=== PATIENT | female | born 1990 | race Caucasian/White ===

== ENCOUNTER → 2021-08-28 14:49 | Outpatient (CLI) | payer OTHER, SELFPAY ==
--- NOTE | ~2021-08-28 | XR_ITS ---
XR shoulder RT min 2V 08/28/2021 15:10 Indication: Right shoulder pain Procedure: 4 views right shoulder Comparison: No prior studies for comparison. Findings: No fracture, subluxation or dislocation. No significant joint effusion. No foreign bodies. Impression: 1: No significant bone or joint abnormality. Reviewed, dictated and finalized at location A. ECTIONAL SUPERVISOR Impression: 1: No significant bone or joint abnormality.
== END ==
PROVIDERS: PCP Family Medicine; Visit Provider Physician Assistant
DX: M25.511 Pain in right shoulder (principal)
CPT/HCPCS: 73030

== ENCOUNTER → 2022-08-13 15:28 | Outpatient (CLI) | payer OTHER, SELFPAY ==
--- NOTE | ~2022-08-13 | XR_ITS ---
XR chest 2V DATE: 08/13/2022 15:44 INDICATION: Cough TECHNIQUE: PA and lateral views COMPARISON: None FINDINGS: Normal heart size. No hilar or mediastinal enlargement. No pulmonary infiltrate or consolid ation, pleural effusion or pulmonary vascular congestion or pneumothorax. Included skeletal structures are unremarkable. IMPRESSION: Negative Reviewed, dictated and finalized at location B. LER CRANE OPERATOR IMPRESSION: Negative
== END ==
PROVIDERS: PCP Clinical Nurse Specialist; Visit Provider Clinical Nurse Specialist
DX: R05.9 Cough, unspecified (principal)
CPT/HCPCS: 71046

== ENCOUNTER 2022-10-28 14:11 | Emergency (ER) | payer OTHER, SELFPAY ==
[2022-10-28] VITALS (25 sets, daily range): BP systolic 102–162; BP diastolic 61–145; PULSE 65–130; RESP 14–23; TEMP 36.4; O2SAT 100
--- NOTE | ~2022-10-28 | XR_ITS ---
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 RESULT: Lines, tubes, and devices: None. Lungs and pleura: Clear. Cardiomediastinal silhouette: Stable. Other: No acute osseous or upper abdominal finding. IMPRESSION: No acute cardiopulmonary process. Reviewed, dictated and finalized at location K. ERCIAL GREEN BUILDING DESIGNER
--- NOTE | 2022-10-28 14:16 | ECG_ITS ---
Measurements Intervals [place] Rate: 103 P: 253 KS: 140 QRS: 44 QRSD: 89 T: 51 QT: 346 QTc: 455 Interpretive Statements ATRIAL FIBRILLATION WITH RAPID VENTRICULAR RESPONSE ABNORMAL RHYTHM ECG NO PREVIOUS ECG AVAILABLE FOR COMPARISON Electronically Signed On 10-28-2022 18:42:13 GARMENT SEWING MACHINE OPERATOR by Inge Humphries M.D.
--- NOTE | 2022-10-28 14:28 | PC.NURSE ---
pt states took second dose of metoprolol 12.5mg around 1200 today
--- NOTE | 2022-10-28 14:33 | ED.ARRPALP ---
HPI - Arrhythmia/Palpitations General Chief Complaint: Arrhythmia/Palpitations Stated Complaint: AFIB ?? Time Seen by Provider: 10/28/22 14:16 History of Present Illness HPI narrative: This is a 32-year-old female with past medical history of A-fib status post electrical cardioversion 7 months ago, who presents to the emergency department complaining of arrhythmia beginning approximately 3 hours prior to arrival. The patient states she was at rest when she felt palpitations associated with some lightheadedness. She denies any change in obtaining her medications, recent trauma or recent illness. She states she took her morning dose of metoprolol (12.5 mg) as usual. Approximately 1 hour ago, she took an additional dose of her metoprolol. She has no other complaints today. The patient states she has a cardiology appointment scheduled for early November. Related Data Home Medications Medication Instructions Recorded Confirmed apixaban 5 mg tablet (Eliquis) 5 mg PO BID 09/27/22 09/27/22 metoprolol succinate 25 mg 12.5 mg PO DAILY 09/27/22 09/27/22 tablet,extended release 24 hr Allergies Allergy/AdvReac Type Severity Reaction Status Date / Time vilazodone [Viibryd] Allergy Unknown confrontati Verified 10/28/22 14:24 onal Review of Systems Review of Systems: CONSTITUTIONAL: Denies fever, chills, or sweats. ENT: Denies rhinorrhea, congestion, sore throat, or otalgia. CARDIOVASCULAR: Palpitations denies chest pain, or edema. RESPIRATORY: Denies cough or dyspnea. GASTROINTESTINAL: Denies abdominal pain, nausea, vomiting, or diarrhea. GENITOURINARY: Denies dysuria or hematuria. SKIN: Denies rash or itching. MUSCULOSKELETAL: Denies back pain, joint pain, or myalgia. NEUROLOGIC: Denies headache, numbness, dizziness, or weakness. PSYCHIATRIC: Denies anxiety or depression. 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 states she smokes but, not even one cigarette a week. Alcohol intake: current Lack of Transportation: No Lack of Food: Never True Current Housing: I Have Housing Concerned About Future Housing: No Difficulty Paying Gas/Electric Bills: No Difficulty Paying for Meds: No Currently Unemployed: No Education: Bachelor's Degree Difficulty w/ Childcare or Family Care: No Exam Narrative: GENERAL: Well-developed, well-nourished, and in no acute distress. HEAD: Normocephalic, atraumatic. EYES: PERRLA and EOMI. ENT: Nares clear, no rhinorrhea or epistaxis. Mucous membranes moist. Oropharynx without tonsillar hypertrophy exudate or other lesions. NECK: No carotid bruits or JVD CHEST: Clear to auscultation. No respiratory distress. No wheezes rales or rhonchi HEART: Irregularly irregular. No murmur heard. Normal peripheral pulses. ABDOMEN: Soft, nontender, nondistended, normal active bowel sounds. EXTREMITIES: Normal range of motion. No edema. SKIN: Warm, dry, no rash. NEURO: No focal deficits. Alert and oriented x3. PSYCH: Normal mood and affect. Course Course Emergency Course: 15:45 - Heart rate improved to the 80s to 90s after 5 mg dose of IV metoprolol, 2 g of magnesium and a liter of fluids. Chest x-ray unremarkable. Initial EKG consistent with A-fib with RVR. Consulted cardiology. 15:58 - Discusse
[2022-10-28 14:43] LABS: Basophils Absolute Auto 0.1 K/mm3 (0.0-0.1); Basophils Percent Auto 0.6 % (0.2-1.2); Eosinophils Absolute Auto 0.1 K/mm3 (0-0.3); Eosinophils Percent Auto 0.7 % (0-4.4); Hematocrit 42.4 % (37.0-47.0); Hemoglobin 14.4 g/dL (12.0-15.0); Immature Granulocyte Absolute 0.03 K/mm3 (0.00-0.031); Immature Granulocyte Percent A 0.3 % (0-0.5); Lymphocytes Absolute Auto 2.87 K/mm3 (0.9-3.2); Lymphocytes Percent Auto 27.4 % (18.3-44.2); Mean Corpuscular Hemoglobin 32.4 pg (26-34); Mean Corpuscular Volume 95.5 fl (80-100); Mean Platelet Volume 8.8 fl (7.4-10.4); Monocytes Absolute Auto 0.5 K/mm3 (0.1-0.6); Monocytes Percent Auto 4.8 % (2.6-8.5); Neutrophils Absolute Auto 6.9 K/mm3 (1.3-6.7); Neutrophils Percent Auto 66.2 % (45.5-73.1); Platelet Count Result 313 k/mm3 (150-375); Red Blood Count 4.44 M/mm3 (4.2-5.4); Red Cell Distribution Width 12.2 % (11.5-14.5); White Blood Count 10.5 K/mm3 (4.5-10.0)
[2022-10-28] MEDS: METOPROLOL TARTRATE INJ 5 MG/5 ML VIAL IV PUSH (14:52)
[2022-10-28] MEDS: SODIUM CHLORIDE 0.9% IV 1,000 ML 999 ML IV CONT (14:53)
[2022-10-28] MEDS: MAGNESIUM SULF 2 GM/WATER 50ML 2 GM/50 ML BAG IVPB (14:53)
[2022-10-28 15:00] LABS: Alanine Aminotransferase 16 U/L (6-35); Albumin Level 4.4 g/dL (3.5-5.1); Alkaline Phosphatase 74 U/L (38-126); Anion Gap 6 mmol/L (8-16); Aspartate Amino Transferase 19 U/L (14-36); Bilirubin,Total 0.5 mg/dL (0.2-1.3); Blood Urea Nitrogen 9 mg/dL (7-17); Calcium 8.5 mg/dL (8.4-10.2); Carbon Dioxide 26 mmol/L (22-30); Chloride 102 mmol/L (98-107); Estimated CRCL calculation 107 ml/min; Estimated Glomerular Filt Rate > 60; Glucose 96 mg/dL (65-110); Magnesium 1.7 mg/dL (1.6-2.3); Potassium 3.8 mmol/L (3.4-5.0); Sodium 134 mmol/L (137-145)
[2022-10-28 15:30] LABS: Thyroid Stimulating Hormone Reflex 0.976 uIU/mL (0.465-4.68)
== END 2022-10-28 16:43 | disposition home or self-care (01) ==
PROVIDERS: Emergency Provider Preventive Medicine Aerospace Medicine; PCP Family Medicine
DX: I48.91 Unspecified atrial fibrillation (principal); F17.210 Nicotine dependence, cigarettes, uncomplicated; Z79.01 Long term (current) use of anticoagulants
CPT/HCPCS: 36415; 71045; 80053; 83735; 84443; 85025; 93005; 96365; 96375; 99284; J3475; J7030

== ENCOUNTER 2023-11-16 13:42 | Emergency (ER) | payer OTHER, SELFPAY ==
[2023-11-16 13:48] VITALS: BP 153/88; PULSE 119; RESP 16; TEMP 36.9; O2SAT 100
--- NOTE | 2023-11-16 15:00 | ED.GENADULT ---
HPI - General Adult General Chief complaint: Urogenital-Female Stated complaint: Urinary Problem/Low Back Pain/Nausea Source: patient Mode of arrival: ambulatory Limitations: no limitations History of Present Illness HPI narrative: Patient presents for evaluation of urinary symptoms. She indicates yesterday she developed urinary frequency, hesitancy, decreased volume with each void, and some dysuria. She thought she was developing a urinary tract infection so consumed a large volume of cranberry juice. She thought her symptoms were getting better. This morning she woke from sleep with low back pain. She has also experienced chills. Denies fever, vaginal bleeding or discharge. LMP was two weeks ago. She is not on contraception. Of note, she has a history of atrial fibrillation and underwent cardiac ablation. She states she converted to NSR and has not had any recurrence of her a-fib. She saw her ignition expert this past Saturday and was advised that she should wean off her metoprolol. It sounds like she was taking metoprolol tartrate 25mg daily but is now taking every other day, as directed. Her heart rate on arrival and during my exam 110-120's. She states her heart rate is normally quite variable. In fact, she shows me readings on her watch that show rates between 58-150's recently. She denies any stimulant use. She is a current smoker. Related Data Allergies Allergy/AdvReac Type Severity Reaction Status Date / Time vilazodone [Viibryd] Allergy Unknown confrontati Verified 11/16/23 13:54 onal Review of Systems Review of Systems: CONSTITUTIONAL: Reports chills. Denies fever or sweats. EYES: Denies visual changes, redness, or discharge. ENT: Denies rhinorrhea, congestion, sore throat, or otalgia. CARDIOVASCULAR: Denies chest pain, palpitations, or edema. RESPIRATORY: Denies cough or dyspnea. GASTROINTESTINAL: Denies abdominal pain, nausea, vomiting, or diarrhea. GENITOURINARY: Reports recent dysuria, urinary frequency, hesitancy and decreased volume with each void SKIN: Denies rash or itching. MUSCULOSKELETAL: Reports low back pain. Denies joint pain, or myalgia. NEUROLOGIC: Denies headache, numbness, dizziness, or weakness. PSYCHIATRIC: Denies anxiety or depression. 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 states she smokes one cigarette a week. Alcohol intake: current Lack of Transportation: No Lack of Food: Never True Current Housing: I Have Housing Concerned About Future Housing: No Difficulty Paying Gas/Electric Bills: No Difficulty Paying for Meds: No Currently Unemployed: No Education: Bachelor's Degree Difficulty w/ Childcare or Family Care: No Gender identity (if verbalized by the patient): Female Sexual Orientation (if Verbalized by the Patient): Straight or Heterosexual Spiritual care concerns: No Exam Narrative: GENERAL: Well-appearing, well-nourished, and in no acute distress. HEAD: Normocephalic, atraumatic. EYES: PERRLA and EOMI. ENT: Nares clear, no rhinorrhea or epistaxis. Mucous membranes moist. Oropharynx without tonsillar hypertrophy exudate or
== END 2023-11-16 15:02 | disposition short-term general hospital (02) ==
PROVIDERS: Emergency Provider Nurse Practitioner; PCP Family Medicine
DX: N39.0 Urinary tract infection, site not specified (principal); B96.20 Unspecified Escherichia coli [E. coli] as the cause of diseases classified elsewhere; R00.0 Tachycardia, unspecified; Z72.0 Tobacco use; I48.91 Unspecified atrial fibrillation
CPT/HCPCS: 81003; 81025; 87077; 87086; 87088; 87186; 99213; G0463

== ENCOUNTER 2023-11-16 15:31 | Emergency (ER) | payer OTHER, SELFPAY ==
--- NOTE | ~2023-11-16 | CT_ITS ---
EXAMINATION: CT abdomen pelvis w con DATE: 11/16/2023 16:47 INDICATION: concern for pyelo TECHNIQUE: Computed tomography (CT) of the abdomen and pelvis was performed with 100 mL Omnipaque-350 intravenous contrast. Automated exposure control and iterative reconstruction technique were employe d. The dose-length product was 472.36 mGy-cm. COMPARISON: None. FINDINGS: Lower thorax: Unremarkable Liver: Normal. Biliary/Gallbladder: Gallbladder is normal. No bile duct dilation. Pancreas: No mass or duct dilation. Spleen: Normal. Adrenals:No mass. Kidneys: Urothelial hyperemia and periureteral stranding involving the entire left collecting system. Minimal right ureteral urothelial hyperemia. No suspicious mass, obstructing calcification, or hydro nephrosis. GI tract: No small or large bowel dilation. Normal appendix. Mesentery/Peritoneum: No ascites, mass, or free air. Retroperitoneum: No mass. Pelvis: Mild bladder wall hyperemia, without significant inflammatory change. Pelvic organs are other mirza within normal limits. Soft Tissues: Soft tissues and body wall unremarkable. Bones: No acute osseous finding. IMPRESSION: Mild cystitis, moderate left and mild right ureteritis/pyelitis. No CT evidence of pyelonephritis, no ting that pyelonephritis cannot be excluded based on imaging. No other acute abdominopelvic process detected. Reviewed, dictated and finalized at location K. ESSOR OF [employer]IES IMPRESSION: Mild cystitis, moderate left and mild right ureteritis/pyelitis. No CT evidence of pyelonephritis, noting that pyelonephritis cannot be excluded based on imag ing. No other acute abdominopelvic process detected.
[2023-11-16 15:33] VITALS: BP 156/88; PULSE 125; RESP 17; TEMP 36.5; O2SAT 100
[2023-11-16 15:47] LABS: Basophils Percent Auto 0.4 % (0.2-1.2); Eosinophils Percent Auto 0.1 % (0-4.4); Hematocrit 42.6 % (37.0-47.0); Hemoglobin 14.3 g/dL (12.0-15.0); Immature Granulocyte Absolute 0.03 K/mm3 (0.00-0.031); Immature Granulocyte Percent A 0.3 % (0-0.5); Lymphocytes Absolute Auto 1.48 K/mm3 (0.9-3.2); Lymphocytes Percent Auto 13.2 % (18.3-44.2); Mean Corpuscular HGB Conc 33.6 g/dl (32-36); Mean Corpuscular Hemoglobin 32.4 pg (26-34); Mean Corpuscular Volume 96.6 fl (80-100); Mean Platelet Volume 8.8 fl (7.4-10.4); Monocytes Absolute Auto 0.5 K/mm3 (0.1-0.6); Monocytes Percent Auto 4.4 % (2.6-8.5); Neutrophils Absolute Auto 9.2 K/mm3 (1.3-6.7); Neutrophils Percent Auto 81.6 % (45.5-73.1); Platelet Count Result 279 k/mm3 (150-375); Red Blood Count 4.41 M/mm3 (4.2-5.4); Red Cell Distribution Width 12.4 % (11.5-14.5); White Blood Count 11.2 K/mm3 (4.5-10.0)
[2023-11-16 15:58] LABS: Alanine Aminotransferase 23 U/L (6-35); Albumin Level 4.6 g/dL (3.5-5.1); Alkaline Phosphatase 78 U/L (38-126); Anion Gap 11 mmol/L (8-16); Aspartate Amino Transferase 29 U/L (14-36); Bilirubin,Total 0.8 mg/dL (0.2-1.3); Blood Urea Nitrogen 2 mg/dL (7-17); Calcium 9.6 mg/dL (8.4-10.2); Carbon Dioxide 26 mmol/L (22-30); Chloride 95 mmol/L (98-107); Estimated CRCL calculation 120 ml/min; Estimated Glomerular Filt Rate > 60; Glucose 114 mg/dL (65-110); Potassium 3.2 mmol/L (3.4-5.0); Sodium 132 mmol/L (137-145)
--- NOTE | 2023-11-16 16:10 | ECG_ITS ---
Measurements Intervals [place] Rate: 100 P: 39 NV: 152 QRS: 15 QRSD: 87 T: 13 QT: 377 QTc: 486 Interpretive Statements SINUS TACHYCARDIA BASELINE ARTIFACT- II, III BORDERLINE ECG COMPARED TO ECG 10/28/2022 14:20:11 SINUS TACHYCARDIA NOW PRESENT Electronically Signed On 11-16-2023 17:09:34 UTILIZATION SPECIALIST by Joni Morris D.O.
--- NOTE | 2023-11-16 16:11 | ED.FEMALEGU ---
HPI - Female Genitourinary General Chief complaint: Urogenital-Female Stated complaint: UTI/tachy/back pain- r/o sepsis Time Seen by Provider: 11/16/23 15:42 History of Present Illness HPI Narrative: 33-year-old female with a history of paroxysmal atrial fibrillation who is s/p cardiac ablation reports for evaluation for urinary complaints. Patient states yesterday she had dysuria and urinary frequency. States she took cranberry juice and it resolved. States this morning she had an episode of nausea and vomiting which prompted her to urgent care. She went to urgent care today for having low back pain and tachycardia. She was sent to the emergency department for further evaluation for an infection. Related Data Allergies Allergy/AdvReac Type Severity Reaction Status Date / Time vilazodone [Viibryd] Allergy Unknown confrontati Verified 11/16/23 13:54 onal Review of Systems Review of Systems: CONSTITUTIONAL: Denies fever, chills, or sweats. EYES: Denies visual changes, redness, or discharge. ENT: Denies rhinorrhea, congestion, sore throat, or otalgia. CARDIOVASCULAR: Denies chest pain, palpitations, or edema. RESPIRATORY: Denies cough or dyspnea. GASTROINTESTINAL: See HPI GENITOURINARY: See HPI SKIN: Denies rash or itching. MUSCULOSKELETAL: Denies back pain, joint pain, or myalgia. NEUROLOGIC: Denies headache, numbness, or weakness. PSYCHIATRIC: Denies anxiety or depression. 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 states she smokes one cigarette a week. Alcohol intake: current Lack of Transportation: No Lack of Food: Never True Current Housing: I Have Housing Concerned About Future Housing: No Difficulty Paying Gas/Electric Bills: No Difficulty Paying for Meds: No Currently Unemployed: No Education: Bachelor's Degree Difficulty w/ Childcare or Family Care: No Gender identity (if verbalized by the patient): Female Sexual Orientation (if Verbalized by the Patient): Straight or Heterosexual Spiritual care concerns: No Exam Narrative: GENERAL: Well-appearing, well-nourished, and in no acute distress. HEAD: Normocephalic, atraumatic. EYES: PERRLA and EOMI. ENT: Nares clear, no rhinorrhea or epistaxis. Mucous membranes moist. NECK: Supple. CHEST: Clear to auscultation. No respiratory distress. HEART: Regular rate and rhythm. No murmur heard. Normal peripheral pulses. ABDOMEN: Soft, nontender, nondistended, normal active bowel sounds. No rebound, guarding or rigidity. No CVA tenderness. EXTREMITIES: Normal range of motion. No edema. SKIN: Warm, dry, no rash. NEURO: No focal deficits. Alert and oriented x3 Course Vital Signs Vital signs: Vital Signs Temperature 97.7 F 11/16/23 15:33 Pulse Rate 125 H 11/16/23 15:33 Respiratory Rate 17 11/16/23 15:33 Blood Pressure 156/88 H 11/16/23 15:33 Pulse Oximetry 100 11/16/23 15:33 Oxygen Delivery Room Air 11/16/23 15:33 Temperature 97.7 F 11/16/23 15:33 Pulse Rate 125 H 11/16/23 15:33 Respiratory Rate 17 11/16/23 15:33 Blood Pressure 156/88 H 11/16/23 15:33 Pulse Oximetry 100 11/16/23 15:
[2023-11-16] MEDS: ONDANSETRON INJ 4 MG/2 ML VIAL IV PUSH (16:17)
[2023-11-16] MEDS: SODIUM CHLORIDE 0.9% IV 1,000 ML 999 ML IV CONT ×2 (16:17→18:04)
[2023-11-16 16:44] LABS: Lipase 65 U/L (23-300)
[2023-11-16 17:07] LABS: Influenza A QL RT-PCR Negative (Negative); Influenza B QL RT-PCR Negative (Negative); RSV RNA, RT-PCR Negative (Negative); SARS-CoV-2 RNA PCR Negative (Negative)
[2023-11-16 17:10] LABS: Appearance Urine Clear (Clear); Bacteria Urine None Seen /hpf; Bilirubin Urine Negative (Negative); Blood Urine 1+ (Negative); Color Urine Yellow (Yellow); Glucose Urine UA Negative (Negative); Ketones Urine Negative (Negative); Leukocyte Esterase Ur 3+ LEU/UL (Negative); Need Manual Microscopic Reviewed; Nitrate Urine Negative (Negative); Non Pathogenic Casts 0-2; Protein Urine Trace mg/dL (Negative); RBC Urine 0-2 /hpf (0-2); Specific Grav Ur 1.001 (1.001-1.035); Squamous Epithelial Cell Urine None seen /hpf (Few); WBC Urine 21-50 /hpf; pH Urine 6.5 (5.0-9.0)
[2023-11-16 17:11] LABS: Add Urine Microscopic? YES
[2023-11-16 17:53] LABS: Magnesium 1.7 mg/dL (1.6-2.3)
[2023-11-16] MEDS: POTASSIUM CHLORIDE 20 MEQ PACKET (FOR LIQUID) PO (18:02)
[2023-11-16 18:30] VITALS: BP 100/59; PULSE 98; RESP 16; TEMP 36.8; O2SAT 96
[2023-11-16 19:14] VITALS: BP 99/61; PULSE 100; RESP 18; O2SAT 100
== END 2023-11-16 19:14 | disposition home or self-care (01) ==
PROVIDERS: Emergency Medicine; Emergency Provider Physician Assistant; PCP Family Medicine
DX: N12 Tubulo-interstitial nephritis, not specified as acute or chronic (principal); Z20.822 Contact with and (suspected) exposure to COVID-19; I48.0 Paroxysmal atrial fibrillation; F17.210 Nicotine dependence, cigarettes, uncomplicated; R00.0 Tachycardia, unspecified
CPT/HCPCS: 36415; 74177; 80053; 81001; 81003; 81025; 83605; 83690; 83735; 85025; 87077; 87086; 87088; 87186; 87637; 93005; 96361; 96365; 96375; 99284; A9270; J0696; J2405; J7030; Q9967

== ENCOUNTER 2024-08-28 09:13 | Emergency (ER) | payer OTHER, SELFPAY ==
[2024-08-28 09:25] VITALS: BP 134/81; PULSE 92; RESP 18; TEMP 36.6; O2SAT 100
--- NOTE | 2024-08-28 09:25 | ECG_ITS ---
Test Date: 2024-08-28 09:31:58 Measurements Intervals [place] Rate: 79 P: 37 IN: 148 QRS: 34 QRSD: 88 T: 29 QT: 388 QTc: 446 Interpretive Statements SINUS RHYTHM No previous ECG available for comparison Electronically Signed On 08-28-2024 18:40:52 CORRUGATED BOX MACHINE OPERATOR by Frances Cruz M.D.
--- NOTE | 2024-08-28 09:31 | ED.CHESTPAIN ---
HPI - Chest Pain General Chief Complaint: Chest Pain Stated Complaint: Heart burn heavy felling on chest Source: patient Mode of arrival: ambulatory Limitations: no limitations History of Present Illness HPI narrative: 34-year-old female with a history of atrial fibrillation post ablation presented for complaint of heavy and tight sensation in the chest. Onset 0400. Tight sensation is described as a labor contraction and occurs every few minutes. One episode of vomiting, and has been belching frequently. States she took 6 Tums without relief. Denies pain radiating into the neck, jaw, back or down the arms. Denies associated nausea, vomiting, dizziness or sweating. Endorses increased stress for infertility issues, currently taking Doxy for infection in fallopian tube. Related Data Home Medications ?Medication ?Instructions ?Recorded ?Confirmed ?Last Taken ?Type doxycycline hyclate 100 mg tablet mg 08/28/24 Unknown History Allergies Allergy/AdvReac Type Severity Reaction Status Date / Time vilazodone (Viibryd) Allergy Unknown confrontati Verified 11/16/23 13:54 onal Review of Systems Review of Systems: CONSTITUTIONAL: Denies body aches, fever, chills, or sweats. EYES: Denies visual changes, redness, or discharge. ENT: Denies rhinorrhea, congestion, sore throat, or otalgia. CARDIOVASCULAR: Denies chest pain, palpitations, or edema. RESPIRATORY: Denies cough or dyspnea. GASTROINTESTINAL: Denies abdominal pain, constipation or diarrhea. reports nausea, vomiting SKIN: Denies rash MUSCULOSKELETAL: Denies back pain, joint pain, or myalgia. NEUROLOGIC: Denies headache, numbness, tingling, or weakness. PSYCH: Denies depression or anxiety. 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 states she smokes one cigarette a week. Alcohol intake: current Lack of Transportation: No Lack of Food: Never True Current Housing: I Have Housing Concerned About Future Housing: No Difficulty Paying Gas/Electric Bills: No Difficulty Paying for Meds: No Currently Unemployed: No Education: Bachelor's Degree Difficulty w/ Childcare or Family Care: No Gender identity (if verbalized by the patient): Female Sexual Orientation (if Verbalized by the Patient): Straight or Heterosexual Spiritual care concerns: No Comments At time of signature, I have reviewed and agree with nursing past medical, surgical, social and family history unless otherwise noted. Please see nursing chart for further information. There is no relevant family history pertinent to the presenting complaint Exam Narrative: GENERAL: Well-appearing EYES: EOMI. No redness or drainage. Conjunctivae normal. ENT: Mucous membranes pink and moist. No rhinorrhea. TMs normal bilaterally. Throat normal. Uvula midline. NECK: Normal AROM. Supple. No lymphadenopathy. CHEST: No respiratory distress. Clear to auscultation. Nontender chest with palpation. HEART: Regular rate and rhythm. No murmur appreciated. Normal peripheral pulses. ABDOMEN: Soft, nondistended, normal active bowel sounds. Tender to epigastric area with palpation. SKIN: Warm, dry, no rash. Capillary refill normal. Normal skin turgor. NEURO: Alert and oriented x3. Course Course Emergency Course: Patient is aware of diagnosis, understands and agrees to treatment plan. Anticipatory guidance given. Patient agrees to follow-up as directed and is aware of reasons to seek care at the emergency department. Portions of this record may have been created with voice recognition software Level of Care: Express Care Visit Vital Signs Vital signs: Vital Signs Temperature 97.8 F 08/28/24 09:25 Pulse Rate 92 08/28/24 09:25 Respiratory Rate 18 08/28/24 09:25 Blood Pressure 134/81 08/28/24 09:25 Pulse Oximetry 100 08/28/24 09:25 Oxygen Delivery Room Air 08/28/24 09:25 Temperature 97.8 F 08/28/24 09:25 Pulse Rate 92 08/28/24 09:25 Respiratory Rate 18 08/28/24 09:25 Blood Pressure 134/81 08/28/24 09:25 Pulse Oximetry 100 08/28/24 09:25 Oxygen Delivery Room Air 08/28/24 09:25 Transfer Transfered to: [place] Transportation: Other (Private vehicle) Transfer rationale: Pt is agreeable to transfer. Requests transfer to [facility] via private vehicle. Risks of transportation reviewed with pt including injury, worsening of condition and . v/u. Report called to hospital, spoke with Chidi Blankenship PA-C, accepting physician. Pt is in stable condition at time of transfer. Advised to remain NPO and go directly to the hospital. MDM - Chest Pain MDM Narrative Medical decision making narrative: Discussed physical exam findings. EKG NSR. Minimal improvement in symptoms after taking multiple Tums this morning and Maalox today. Will transfer for labs. Differential Diagnosis Differential diagnosis: Likely other (STEMI, AAA, PE, pneumothorax, cardiac tamponade, esophageal rupture, pneumonia, GERD, musculoskeletal pain, endocarditis, pericarditis, URI, bronchitis, anxiety) ECG Data EKG #1: Attestation: I personally reviewed and interpreted this ECG as follows: (NSR rate 79 IN 148 QRS 88 QT/QTC 388/423) ECG completion date: 08/28/24 ECG completion time: 09: Prior ECG tracings: available for review EKG Interpretation: normal rate and sinus rhythm Discharge Plan Discharge Clinical Impression: Chest pain Qualifiers: Chest pain type: unspecified Qualified Code(s): R07.9 - Chest pain, unspecified Patient Disposition: Acute Care Hospital Condition: Stable Patient Language: Arabic Prescriptions: No Action doxycycline hyclate 100 mg tablet Follow-up/Referrals: Evelin Cartwright MD [Primary Care Provider] - Time of Disposition: 10:25
[2024-08-28] MEDS: MAG HYDROX/AL HYDROX/SIMETH 30 ML UDC PO (09:54)
== END 2024-08-28 10:25 | disposition short-term general hospital (02) ==
PROVIDERS: Emergency Provider Nurse Practitioner Family; PCP Family Medicine
DX: R07.9 Chest pain, unspecified (principal); Z72.0 Tobacco use
CPT/HCPCS: 93005; 99213; A9270; G0463

== ENCOUNTER 2024-09-18 12:19 | Outpatient (CLI) | payer OTHER, SELFPAY | END 2024-09-18 12:20 | disposition home or self-care (01) | LOC: ANHSURGERY 12:24 | PROVIDERS: PCP Family Medicine; Visit Provider Obstetrics & Gynecology | DX: N70.11 Chronic salpingitis (principal) | CPT/HCPCS: 36415; 86850; 86900; 86901 ==

== ENCOUNTER 2024-10-02 12:29 | Outpatient (CLI) | payer OTHER, SELFPAY | END 2024-10-02 12:30 | disposition home or self-care (01) | LOC: ANHSURGERY 12:33 | PROVIDERS: PCP Family Medicine; Visit Provider Obstetrics & Gynecology | DX: Z01.812 Encounter for preprocedural laboratory examination (principal); M70.11 Bursitis, right hand | CPT/HCPCS: 36415; 86850; 86900; 86901 ==

== ENCOUNTER 2024-10-07 00:42 | Day surgery (SDC) | payer OTHER, SELFPAY ==
[2024-09-17 12:42] VITALS: BMI 27.5
--- NOTE | 2024-09-17 12:50 | PC.NURSE ---
Report to the Outpatient Waiting Room, entrance under the green pavilion located off [facility], at time _1000_ on date _[id number]_. Planned Procedure Time: _1200_.? Time changes happen often and if your time is changed the preop area will call you the afternoon before. - You and your visitor will be asked to self-screen and do not enter if you have any COVID symptoms. Please call surgeon if you need to reschedule. - A mask is optional within the hospital at this time. Patients may have clear liquids (water, carbonated beverages, clear teas, apple juice) until 3 hours prior to surgery with a maximum of 20 ounces. - No food from midnight until time of surgery and no smoking. This includes no chewing gum, candy or mints. Take only the following medications with a SIP of water on the morning of surgery: ___None DO NOT STOP ANY OF YOUR OTHER PRESCRIPTION MEDICATIONS PRIOR TO SURGERY EXCEPT THE FOLLOWING Medications to discontinue per physician ____None Please no make-up, nail occitan, hairspray, perfume, deodorant, or body powder the day of surgery.? No jewelry (including any body piercings) or valuables the day of surgery, leave them at home.? Please take a shower or bath the night before, or the morning of, surgery with an antibacterial soap.? Wear comfortable, loose fitting clothing.? - Jewelry must be removed prior to entering the operating room.? Rings and piercings that are not removed may be cut off. - The hospital will not accept responsibility for valuables.? - Please leave all valuables, including medications, at home the day of surgery. If you are going home after surgery, a licensed regional otr company driver must drive you home.? - NO public transportation without another adult if you receive anesthesia. - We recommend that an adult stay with you for 24 hours following discharge. - We also recommend that you do not drive, make important decision, drink alcoholic beverages, or take any drugs that were not prescribed by your health care provider for at least 24 hours after your discharge time. Follow any additional instructions given to you from your surgeon. Telephone instructions given to _Tess___and asked if any additional questions and then verbalized understanding. Patient advised to call surgeon office or pre surgery nurse liaison [phone] if any additional questions.
--- NOTE | 2024-09-24 10:20 | SUR.PREOP ---
Report to the Outpatient Waiting Room, entrance under the green pavilion located off [facility], at time _1100_ on date _10/07/2024_. Planned Procedure Time: _1300_.? Time changes happen often and if your time is changed the preop area will call you the afternoon before. - You and your visitor will be asked to self-screen and do not enter if you have any COVID symptoms. Please call surgeon if you need to reschedule. - A mask is optional within the hospital at this time. Patients may have clear liquids (water, carbonated beverages, clear teas, apple juice) until 3 hours (1000) prior to surgery with a maximum of 20 ounces. - No food from midnight until time of surgery and no smoking. This includes no chewing gum, candy or mints. - Infants may have breast milk until 4 hours before surgery, formula 6 hours prior to surgery. - Children will be allowed to drink immediately following surgery.? If applicable, please bring a bottle or sippy cup to assist with drinking. Juice, water, soda, and popsicles are readily available.? For infants on formula, please bring formula the day of surgery.? Pacifiers are allowed. Take only the following medications with a SIP of water on the morning of surgery: _NONE_ DO NOT STOP ANY OF YOUR OTHER PRESCRIPTION MEDICATIONS PRIOR TO SURGERY EXCEPT THE FOLLOWING Medications to discontinue per physician _NONE_ Please no make-up, nail slovenian, hairspray, perfume, deodorant, or body powder the day of surgery.? No jewelry (including any body piercings) or valuables the day of surgery, leave them at home.? Please take a shower or bath the night before, or the morning of, surgery with an antibacterial soap.? Wear comfortable, loose fitting clothing.? Children are encouraged to wear pajamas. - Jewelry must be removed prior to entering the operating room.? Rings and piercings that are not removed may be cut off. - The hospital will not accept responsibility for valuables.? - Please leave all valuables, including medications, at home the day of surgery. If you are going home after surgery, a licensed jeep driver must drive you home.? - NO public transportation without another adult if you receive anesthesia. - We recommend that an adult stay with you for 24 hours following discharge. - We also recommend that you do not drive, make important decision, drink alcoholic beverages, or take any drugs that were not prescribed by your health care provider for at least 24 hours after your discharge time. Follow any additional instructions given to you from your surgeon. Telephone instructions given to _TESS_and asked if any additional questions and then verbalized understanding. Patient advised to call surgeon office or pre surgery nurse liaison [phone] if any additional questions.
--- NOTE | 2024-09-24 10:24 | SUR.PREOP ---
Per patient there are no changes to health history or medication list since previous interview. New instructions, including surgery and arrival time, given to patient.
[2024-10-07] VITALS (7 sets, daily range): BP systolic 105–127; BP diastolic 68–84; PULSE 69–84; RESP 13–18; TEMP 36.4–36.5; O2SAT 93–100
[2024-10-07] MEDS: ACETAMINOPHEN 500 MG TABLET 1000 MG PO (11:20)
[2024-10-07] MEDS: LACTATED RINGERS 1,000 ML 30 ML IV CONT (11:25)
[2024-10-07] MEDS: KETOROLAC 15 MG/ML VIAL (*BKC) IV PUSH (11:30)
[2024-10-07 11:40] LABS: BEDSIDEPREGUCG Negative (Negative)
--- NOTE | 2024-10-07 12:06 | PM.IMHP ---
H&P: HPI History of Present Illness Date/Time: 10/07/24 12:06 Chief Complaint: Hydrosalpinx Narrative: 34 y/o who had a hysterosalpingogram with an infertility specialist that showed a normal-appearing right adnexa, but the left side showed a likely hydrosalpinx. It was recommended to her that she have laparoscopic evaluation and treatment. She is still trying for . 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 states she smokes one cigarette a week. Alcohol intake: current Lack of Transportation: No Lack of Food: Never True Current Housing: I Have Housing Concerned About Future Housing: No Difficulty Paying Gas/Electric Bills: No Difficulty Paying for Meds: No Currently Unemployed: No Education: Bachelor's Degree Difficulty w/ Childcare or Family Care: No Living arrangements: with family Gender identity (if verbalized by the patient): Female Sexual Orientation (if Verbalized by the Patient): Straight or Heterosexual Spiritual care concerns: No Meds Home Medications and Allergies Home Medications ?Medication ?Instructions ?Recorded ?Confirmed ?Type No Home Medications 09/17/24 09/17/24 History Allergies Allergy/AdvReac Type Severity Reaction Status Date / Time vilazodone (Viibryd) Allergy Unknown confrontati Verified 10/07/24 11:35 onal Vital Signs Vital Signs - 24 hr 10/07/24 11:09 Temperature 36.5 C Pulse Rate 84 Respiratory Rate 18 Blood Pressure 123/84 Pulse Oximetry 100 Oxygen Delivery Room Air Exam Const: Orientation/consciousness: patient oriented x3 Other: Well-developed, well-nourished female in no acute distress. Neck: Thyroid: thyroid normal Lymphatic: no lymphadenopathy noted (in neck, axilla or inguinal nodes) Resp: Effort & Inspection: normal respiratory effort Auscultation: clear to auscultation bilaterally Cardio: Rate: regular rate Rhythm: regular rhythm Heart sounds: S1 normal heart sound present and S2 normal heart sound present GI: Other: ABD: Soft, nontender, nondistended. No guarding or rebound tenderness. No hepatosplenomegaly. : General: Yes no CVA tenderness Other: External genitalia: normal female hair distribution, without lesion. Urethral meatus: no lesion, non prolapsed. Bladder: no mass, nontender Vagina: well-estrogenized, without lesion or discharge. No cystocele or rectocele. Cervix: no lesion or discharge. Uterus: small, anteverted, freely mobile, nontender Adnexa: no mass or tenderness. Anus/perineum: no lesions, nontender Back/Spine/Pelvis: Back: no CVA tenderness Skin: General skin exam: normal color and no rashes or lesions noted Neuro: General: patient oriented x3 Extrem: Other: Extremities: nontender with no edema Psych: Mental Status: mental status grossly normal Affect: normal affect Assessment and Plan Assessment and plan (1) Hydrosalpinx: Code(s): N70.11 - Chronic salpingitis Status: Acute Assessment and Plan: A: Left sided hydrosalpinx. P: Offered laparoscopic left salpingectomy, possible chromopertubation. She understands risks of surgery to include risks of anesthesia, risks of pain, infection, bleeding, blood products, thromboembolic phenomena and damage to adjacent structures such as bowel, bladder, ureters, blood vessels and nerves. She understands all these risks and elects to proceed with surgery.
--- NOTE | 2024-10-07 12:13 | WPDHPUPDATE1 ---
History and Physical Update Update Date/Time: 10/07/24 12:13 History and Physical has been reviewed, including an updated exam of the patient. There are NO changes in the patient's condition. Risks, benefits, and alternatives have been discussed and questions answered. Patient agrees to proceed with procedure.
--- NOTE | 2024-10-07 13:04 | WPDANESEPPF ---
Anes - Initial Pre Proc Eval Procedure: Operation Date: 10/07/24 13:00 Proposed Procedures p Laparoscopic Left Salpingectomy, Possible Chromopertubation - Dg Salguero MD Date/Time: 10/07/24 13:04 Surgeon: Dg Salguero MD Pre Op Diagnosis: hydrosalpinx Patient Data Age: 34 Gender: F Height: 1.68 m Weight: 80.49 kg Last Vital Signs Temp 36.5 C 10/07/24 11:09 Pulse 84 10/07/24 11:09 Resp 18 10/07/24 11:09 BP 123/84 10/07/24 11:09 Pulse Ox 100 10/07/24 11:09 O2 Del Method Room Air 10/07/24 11:09 Allergies Allergy/AdvReac Type Severity Reaction Status Date / Time vilazodone (Viibryd) Allergy Unknown confrontati Verified 10/07/24 11:35 onal Home Medications ?Medication ?Instructions ?Recorded ?Confirmed ?Type No Home Medications 09/17/24 09/17/24 History Laboratory Tests 10/07/24 11:38 POC Urine HCG, Qual Negative (Negative) Patient hx anesthesia problems: none Family hx anesthesia problems: none Results Review: All pre-operative results and documents have been reviewed as part of the pre-operative evaluation. 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 states she smokes one cigarette a week. Alcohol intake: current Lack of Transportation: No Lack of Food: Never True Current Housing: I Have Housing Concerned About Future Housing: No Difficulty Paying Gas/Electric Bills: No Difficulty Paying for Meds: No Currently Unemployed: No Education: Bachelor's Degree Difficulty w/ Childcare or Family Care: No Living arrangements: with family Gender identity (if verbalized by the patient): Female Sexual Orientation (if Verbalized by the Patient): Straight or Heterosexual Spiritual care concerns: No Anes - Eval Final PreProcedure Day of Procedure 10/07/24 13:04 Patient weight: overweight Heart: regular rate and rhythm Lungs: clear to auscultation Airway: Mallampati scale class 1 Neurological: alert and oriented Last oral intake: >/= 8 hours ASA classification: II Emergent: no Anesthetic plan: proceed Anesthesia type and monitoring: general ETT and standard monitoring Results Review: All pre-operative results and documents have been reviewed as part of the pre-operative evaluation. Informed Consent: The patient's anesthetic plan and its attendant risks and benefits were discussed with the patient/family/POA. Questions were solicited and answers provided to the satisfaction of the patient/family/POA.
[2024-10-07] MEDS: METHYLENE BLUE 0.5% INJ 10 ML AMPULE 20 ML IRRIGATION (13:49)
--- NOTE | 2024-10-07 14:32 | P.OP_ITS ---
Procedure Note - Detailed Date of Procedure 10/07/24 Pre-op Diagnosis Left hydrosalpinx Post-op Diagnosis Same Procedure Performed Laparoscopic left salpingectomy Chromopertubation Surgeon Dg Salguero MD Anesthesia General Findings The left tube was adherent to the left pelvic wall. The distal left tube raheem eared dilated. The right Fallopian tube was normal-appearing. There was a small right paratubal cyst. There were several small ovarian cysts <1cm bilaterally. The uterus, bilateral ovaries, bilateral round and uterosacral ligaments, anterior and posterior cul de sac were all unremarkable. The liver and gallbladder and vermiform appendix were all visualized and appeared to be normal. At chromopertubation, dye was observed to spill from the right Fallopian tube. Description of Procedure The patient was taken to the operating room where general endotracheal anesthesia was administered. She was prepared and draped in the usual sterile fashion in the dorsal lithotomy position. The bladder was drained with a red rubber catheter. A sterile speculum was inserted into the vagina and the anterior lip of the cervix was grasped with a single-toothed tenaculum. The acorn uterine manipulator was placed. The speculum was withdrawn. Gloves were changed and attention was turned to the abdomen. An infraumbilical skin incision was made with a scalpel. The abdomen was tented and a 5 millimeter bladeless trocar trocar was advanced under direct laparoscopic visualization. Pneumoperitoneum was administered using carbon dioxide gas. A survey of the pelvis and abdomen yielded the findings noted above. A second 5 mm port was placed in the midline above the symphysis pubis, and a 10 mm port was placed in the RLQ, both using bladeless trocars under direct laparoscopic visualization. Using electrocautery endoshears, the adhesions encasing the left tube were lysed, freeing the tube. Using the Ligasure device, the tube was dissected off the left ovary, and the tube was amputated at the level of the uterine serosa. The tube was passed off the field. Methylene blue in normal saline was instilled through the acorn uterine manipulator, and spill of dye from the right Fallopian tube was noted. The pelvis was irrigated copiously with normal saline, and hemostasis was excellent. The trocars were withdrawn and the gas was allowed to escape. The skin incisions were reapproximated using 4-0 Vicryl in interrupted subcuticular fashion. Dermaflex was applied externally. The vaginal instrumentation was withdrawn and hemostasis was excellent here as well. Sponge, lap, needle and instrument counts were correct. The patient was awakened and taken to recovery in stable condition. I was present and scrubbed through the entire procedure. Estimated Blood Loss 5 Drains No Packing No Pathology Yes (Right fallopian tube) Complications None Condition Stable Disposition PACU
[2024-10-07] MEDS: fentaNYL CITRATE INJ (*CRX) 100 MCG/2 ML VIAL 25 MCG IV PUSH ×4 (15:00→15:06)
--- OUTSIDE RECORDS SUMMARY | 2024-10-08 20:54 | XMS_ITS | Clinical Summary ---
Author Organization [facility] Address [address] [place] [address]. [place] [address] [place] [address] Care Team Providers Care Farm Crew Leader Name Role Phone Evelin Cartwright MD Primary Care Provider [phone] Allergies No known active allergies Medications pantoprazole EC (PROTONIX) 40 MG tablet Take 1 tablet (40 mg total) by mouth daily. 30 tablet 4 Active ondansetron (ZOFRAN-ODT) 4 MG disintegrating tablet Take 1 tablet (4 mg total) by mouth every 8 (eight) hours as needed for Nausea. 20 tablet 4 Active HYDROcodone-acetami nophen (NORCO) 5-325 MG tabletIndications:A cute Pain < 7 Day Supply Take 1 tablet by mouth every 6 (six) hours as needed. Indications : Acute Pain < 7 Day Supply 10 tablet 4 Active Encounters Date Type Department Care Team Description 08/28/2024 11:18 AM HEM INSPECTOR - 08/28/2024 3:22 PM [facility] Emergency [facility] Emergency Room [address] [place] [address] Flores Zamorano MD Chest Pain Discharge Disposition: Home or Self Care (Routine Discharge) 08/28/2024 Travel from Last 3 Months Social History Tobacco Use Types Packs/Day Years Used Date Smoking Tobacco: Some Days Cigarettes Smokeless Tobacco: Never Tobacco Cessation:Ready to Q uit: Not Asked; Counseling Given: Not Answered Alcohol Use Standard Drinks/Week Comments Yes 0 (1 standard drink = 0.6 oz pur e alcohol) social Comments Unknown Sex and Gender Information Value Date Recorded Sex Assigned at Not on file Legal Sex Female 11:16 AM HEM INSPECTOR Gender Identity Not on file Sexual Orientation Not on file Last Filed Vital Signs Vital Sign Reading Time Taken Comments Blood Pressure 125/85 08/28/2024 3:15 PM HEM INSPECTOR Pulse 77 08/28/2024 3:15 PM HEM INSPECTOR Temperature 36.4 ??C (97.6 ??F) 08/28/2024 3:15 PM CS T Respiratory Rate 15 08/28/2024 3:15 PM HEM INSPECTOR Oxygen Saturation 99% 08/28/2024 3:15 PM HEM INSPECTOR Inhaled Oxygen Concentration - - Weight 78.3 kg (172 lb 9.9 oz) 08/28/2024 11:23 AM HEM INSPECTOR Height 167.6 cm (5' 6 ) 08/28/2024 11:23 AM HEM INSPECTOR Body Mass Index 27.86 08/28/2024 11:23 AM HEM INSPECTOR Plan of Treatment Health Maintenance Due Date Last Done Comments Cervical Cancer Screening Pap Smear (Age 30 to 64) Every 3 Years 1990 Annual Physical 1993 Pneumococcal Vaccine: Pediatrics (0 to 5 Years) and At-Risk Patients (6 to 64 Years) (1 of 2 - PCV) 02/01/1996 Hepatitis C 02/01/2008 Hepatitis B Vaccines (1 of 3 - 19+ 3-dose series) 2009 Cervical Cancer Screening Pap with HPV Testing (Age 30 to 64) Every 5 Years 02/01/2020 Cervical Cancer Screening with HPV 02/01/2020 COVID-19 Vaccine ( season) 2024 07/08/2023, 12/19/2020, 11/22/2020 Influenza Adult (#1) 2024 07/08/2023, 08/05/2018, 05/28/2017, Additional history exists DTaP, Tdap and Td Vaccines (2 - Td or Tdap) 01/29/2027 01/29/2017 HPV Vaccines Aged Out No longer eligi ble based on patient's age to complete this topic Meningococcal Vaccine Aged Out No miri dania eligible based on patient's age to complete this topic RSV Immunizations Under 20 Months Aged Out No longer eligible based on patient's age to complete this topic Procedures Procedure Name Priority Date/Time Associated Diagnosis Comments CT ABD+PEL W CON STAT 08/28/2024 2:25 PM HEM INSPECTOR TEST URINE STAT 08/28/2024 11:45 AM HEM INSPECTOR URINALYSIS, AUTO, COMPLETE STAT 08/28/2024 11:45 AM HEM INSPECTOR ECG 12-LEAD Routine 08/28/2024 11:34 AM HEM INSPECTOR LIPASE STAT 08/28/2024 11:27 AM HEM INSPECTOR CK (CPK) STAT 08/28/2024 11:27 AM HEM INSPECTOR TROPONIN, QUANT STAT 08/28/2024 11:27 AM HEM INSPECTOR COMPREHENSIVE METABOLIC PANEL STAT 08/28/2024 11:27 AM HEM INSPECTOR D-DIMER, QUANTITATIVE STAT 08/28/2024 11:27 AM HEM INSPECTOR PARTIAL THROMBOPLASTIN TIME,PTT STAT 08/28/2024 11:27 AM HEM INSPECTOR PROTHROMBIN TIME, VENOUS STAT 08/28/2024 11:27 AM HEM INSPECTOR CBC W/DIFF AUTOMATED STAT 08/28/2024 11:27 AM HEM INSPECTOR from Last 3 Months Results * CT ABD+PEL W CON (08/28/2024 2:25 PM HEM INSPECTOR) Anatomical Region Laterality Modality Abdomen Computed Tomogra phy 08/28/2024 2:26 PM HEM INSPECTOR Impressions 08/28/2024 2:34 PM HEM INSPECTOR IMPRESSION: ?? 1. ??No acute abnormality is seen within the abdomen or pelvis. 2. ??There is a 3.1 cm right ovarian cyst. 3. ??Small hiatal hernia. Ordered By: FLORES ZAMORANO Interpreted By: Ozzy Rossi MD, 08/28/2024 2:26 PM Narrative 08/28/2024 2:34 PM HEM INSPECTOR [facility] [address] [place] [address] PROCEDURE: ??CT ABD+PEL W CON HISTORY: ??Epigastric pain TECHNIQUE: ??Helical CT of the abdomen and pelvis was performed using non-ionic intravenous contrast (Isovue-370, 75 mL). No oral contrast was administered. A dose lowering technique was used for this procedure, which may include, but is not limited to, dose reduction technique, automated exposure control, the use of iterative reconstruction, and ALARA (As Low As Reasonably Achievable) / Image Gently techniques. COMPARISON: ??None. FINDINGS CT ABDOMEN/PELVIS: Lower thorax: ??There is subsegmental atelectasis in the lower lobes. The heart is normal in size. ??Small hiatal hernia. Liver: The liver is normal in size. There is no intrahepatic mass. Biliary tree: The gallbladder is present. There is no biliary ductal dilatation. Spleen: The spleen is normal in size. Pancreas: ??The pancreas is normal in size and enhances homogenously. Adrenal glands: ??The adrenal glands are normal in size and shape. Kidneys: ??There are bilateral symmetric nephrograms without hydronephrosis. Lymph nodes: Abdomen: There is no abdominal adenopathy. Pelvis: There is no pelvic adenopathy. Vasculature: ??The aorta is normal caliber. Peritoneum/mesentery/omentum: ??There is no free fluid or free air. GI tract: ??There is no bowel obstruction. The appendix normal. There is a moderate fecal burden within colon. There is normal bowel wall thickening to suggest acute inflammation. Pelvic urogenital structures:The bladder is grossly unremarkable. ??The uterus is not seen. There is a 3.1 cm right ovarian cyst. No left ovarian mass identified. Body wall: ??There are degenerative changes in the spine. No aggressive osseous lesions are identified. White: (S/I) = series number / image number Procedure Note Ozzy Rossi MD - 08/28/2024 [facility] [address] [place] [address] PROCEDURE: CT ABD+PEL W CON HISTORY: Epigastric pain TECHNIQUE: Helical CT of the abdomen and pelvis was performed usingnon-ionic intravenous contrast (Isovue-370, 75 mL). No oral contrast wasadministered. A dose lowering technique was used for this procedure, which may include,but is not limited to, dose reduction technique, automated exposurecontrol, the use of iterative reconstruction, and ALARA (As Low AsReasonably Achievable) / Image Gently techniques. COMPARISON: None. FINDINGS CT ABDOMEN/PELVIS: Lower thorax: There is subsegmental atelectasis in the lower lobes. Theheart is normal in size. Small hiatal hernia. Liver: The liver is normal in size. There is no intrahepatic mass. Biliary tree: The gallbladder is present. There is no biliary ductaldilatation. Spleen: The spleen is normal in size. Pancreas: The pancreas is normal in size and enhances homogenously. Adrenal glands: The adrenal glands are normal in size and shape. Kidneys: There are bilateral symmetric nephrograms withouthydronephrosis. Lymph nodes: Abdomen: There is no abdominal adenopathy. Pelvis: There is no pelvic adenopathy. Vasculature: The aorta is normal caliber. Peritoneum/mesentery/omentum: There is no free fluid or free air. GI tract: There is no bowel obstruction. The appendix normal. There is amoderate fecal burden within colon. There is normal bowel wall thickeningto suggest acute inflammation. Pelvic urogenital structures:The bladder is grossly unremarkable. Theuterus is not seen. There is a 3.1 cm right ovarian cyst. No left ovarianmass identified. Body wall: There are degenerative changes in the spine. No aggressiveosseous lesions are identified. White: (S/I) = series number / image number IMPRESSION: 1. No acute abnormality is seen within the abdomen or pelvis. 2. There is a 3.1 cm right ovarian cyst. 3. Small hiatal hernia. Ordered By: FLORES ZAMORANO Interpreted By: Ozzy Rossi MD, 08/28/2024 2:26 PM Flores Zamorano MD CT Final Result * TEST URINE (08/28/2024 11:45 AM HEM INSPECTOR) URINE HCG TEST NEGATIVE NEGATIVE 08/28/2024 12:02 PM [facility] Comment: VERY DILUTE URINE SPECIMENS MAY NOT CONTAIN ADMINISTRATIVE SERVICES OFFICER LEVELS OF HCG. IF IS STILL SUSPECTED, A SERUM HCG TEST IS RECOMMENDED. URINE SPECIMEN FROM URETHRA / Unknown 08/28/2024 11:45 AM HEM INSPECTOR us Flores Zamorano MD URINE ORDERABLES Final Result [facility] [address] [place] [address], [place] [phone] * URINALYSIS, AUTO, COMPLETE (08/28/2024 11:45 AM HEM INSPECTOR) COLOR (U) YELLOW 08/28/2024 12:07 PM [facility] TRANSPARENCY CLEAR 08/28/2024 12:07 PM [facility] SPECIFIC GRAVITY (U) 1.025 1.000 - 1.030 08/28/2024 12:07 PM [facility] U PH 6.5 5.0 - 9.0 08/28/2024 12:07 PM [facility] LEUKOCYTES (U) NEGATIVE NEGATIVE 08/28/2024 12:07 PM [facility] NITRITES NEGATIVE NEGATIVE 08/28/2024 12:07 PM [facility] PROTEIN RANDOM (U) NEGATIVE NEGATIVE 08/28/2024 12:07 PM [facility] GLUCOSE (U) NEGATIVE NEGATIVE 08/28/2024 12:07 PM [facility] KETONES MG/DL (U) NEGATIVE NEGATIVE 08/28/2024 12:07 PM [facility] BILIRUBIN (U) NEGATIVE NEGATIVE 08/28/2024 12:07 PM HEM INSPECTOR [facility] BLOOD (U) NEGATIVE NEGATIVE 08/28/2024 12:07 PM HEM INSPECTOR [facility] WBC/HPF NONE SEEN 0 - 5 /HPF 08/28/2024 12:07 PM HEM INSPECTOR [facility] RBC/HPF NONE SEEN 0 - 5 /HPF 08/28/2024 12:07 PM HEM INSPECTOR [facility] EPI/HPF MODERATE /HPF 08/28/2024 12:07 PM HEM INSPECTOR [facility] BACTERIA (U) RARE /HPF 08/28/2024 12:07 PM HEM INSPECTOR [facility] URINE SPECIMEN OBTAINED BY CLEAN CATCH PROCEDURE / Unknown 08/28/2024 11:45 AM HEM INSPECTOR us Flores Zamorano MD URINE ORDERABLES Final Result Performing Organization Address City/State/[facility] Co de Phone Number [facility] [address] [place] [address], * ECG 12 lead (08/28/2024 11:34 AM HEM INSPECTOR) 08/28/2024 11:3 4 AM HEM INSPECTOR Narrative [facility] ([facility]) RAD - 08/28/2024 12:15 PM HEM INSPECTOR ?[facility] ? Test Date: ?2024-08-28 Pat Name: ? ERICK CHLIBEC ? Department: ?? 85 ? Room: ? Gender: ? 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 : ?1990 ? Requested By: FLORES ZAMORANO Order Number: [id number] ? Reading MD: ?? James Mott ? Measurements Intervals ?[place] ? Rate: ? 77 ? P: ?30 MO: ? 150 ?QRS: ?32 QRSD: ? 86 ? T: ?27 QT: ? 391 ? QTc: ?445 ? 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 Co de Phone Number [facility]) RAD * (ABNORMAL) PARTIAL THROMBOPLASTIN TIME,PTT (08/28/2024 11:27 AM HEM INSPECTOR) PTT 39.3(H) 27.0 - 36.8 SEC 08/28/2024 11:41 AM HEM INSPECTOR [facility] 08/28/2024 11:2 7 AM HEM INSPECTOR Flores Zamorano MD LABORATORY Final Result Performing Organization Address [facility] Co de Phone Number [facility] [address] [place] [address], [place] [phone] * PROTIME/INR, VENOUS (08/28/2024 11:27 AM HEM INSPECTOR) PROTIME 11.5 9.1 - 12.4 SEC 08/28/2024 11:41 AM HEM INSPECTOR [facility] INR 1.0 08/28/2024 11:41 AM HEM INSPECTOR [facility] Comment: Recommend INR ranges for Oral Anticoagulant Therapy: Mechanical Cardiac Values 2.5-3.5 All others indication 2.0-3.0 08/28/2024 11:2 7 AM HEM INSPECTOR us Flores Zamorano MD LABORATORY Final Result [facility] [address] [place] [address], [place] [phone] * (ABNORMAL) COMPREHENSIVE METABOLIC PANEL (08/28/2024 11:27 AM HEM INSPECTOR) Pathologist [facility] GLUCOSE 94 70 - 99 MG/DL 08/28/2024 11:53 AM [facility] BUN 4(L) 7 - 18 MG/DL 08/28/2024 11:53 AM [facility] CREATININE S/P/B 0.72 0.55 - 1.02 MG/DL 08/28/2024 11:53 AM [facility] SODIUM S/P/B 140 136 - 145 MMOL/L 08/28/2024 11:53 AM [facility] POTASSIUM S/P/B 3.7 3.5 - 5.1 MMOL/L 08/28/2024 11:53 AM [facility] CHLORIDE S/P/B 102 100 - 108 MMOL/L 08/28/2024 11:53 AM [facility] CO2 26.5 21 - 32 MMOL/L 08/28/2024 11:53 AM [facility] CALCIUM S/P/B 10.1 8.5 - 10.1 MG/DL 08/28/2024 11:53 AM [facility] BILIRUBIN TOTAL S/P/B 0.5 0.2 - 1.2 MG/DL 08/28/2024 11:53 AM [facility] TOTAL PROTEIN S/P/B 7.6 6.4 - 8.2 G/DL 08/28/2024 11:53 AM [facility] ALBUMIN S/P/B 4.0 3.4 - 5.0 G/DL 08/28/2024 11:53 AM [facility] AST 14(L) 15 - 37 U/L 08/28/2024 11:53 AM [facility] ALT 17 14 - 55 U/L 08/28/2024 11:53 AM [facility] ALKALINE PHOSPHATASE S/P/B 77 50 - 136 U/L 08/28/2024 11:53 AM [facility] ANION GAP 11.5 5 - 15 MMOL/L 08/28/2024 11:53 AM [facility] BUN CREATININE RATIO 5.6(L) 6 - 26 08/28/2024 11:53 AM [facility] A/G RATIO 1.1 1.0 - 2.0 RATIO 08/28/2024 11:53 AM [facility] GFR ESTIMATE >90 >90 ML/MIN/1.7 3 M2 08/28/2024 11:53 AM [facility] Comment: NOTE: eGFR is not calculated for patients <18 years of age. This is an estimated GFR calculation using the new CKD EPI creatinine equation without race and so does not require a correction factor for race. This estimated GFR should not be used for calculating drug doses. 08/28/2024 11:2 7 AM HEM INSPECTOR Flores Zamorano MD LABORATORY Final Result [facility] [address] [place] [address], [place] [phone] * D-DIMER, QUANTITATIVE (08/28/2024 11:27 AM HEM INSPECTOR) Pathologist [facility] D-DIMER 249 0 - 500 ng{FEU}/mL 08/28/2024 11:41 AM [facility] Comment: D-Dimer values less than or equal to 500 ng/mL FEU have a negative predictive value of >95% for exclusion of deep vein thrombosis and pulmonary embolism. In patients over 50 (who tend to have higher normal baseline D-Dimer values), recent studies suggest age-adjusted D-Dimer cutoff values (calculated as: age [years] x 10 ng/mL) result in equivalent outcomes and no additional false negative findings. 08/28/2024 11:2 7 AM HEM INSPECTOR us Flores Zamorano MD LABORATORY Final Result [facility] [address] [place] [phone], * (ABNORMAL) CBC W/DIFF AUTOMATED (08/28/2024 11:27 AM HEM INSPECTOR) [facility] WBC 7.32 4.4 - 11.0 x10'3/uL 08/28/2024 11:37 AM [facility] RBC 4.42(L) 4.50 - 5.10 x10'6/uL 08/28/2024 11:37 AM [facility] HGB 14.8 12.3 - 15.3 G/DL 08/28/2024 11:37 AM [facility] HCT 43.6 35.9 - 44.6 % 08/28/2024 11:37 AM [facility] MCV 98.6(H) 80.0 - 96.0 FL 08/28/2024 11:37 AM [facility] MCH 33.5(H) 25.3 - 30.9 PG 08/28/2024 11:37 AM [facility] MCHC 33.9 31.0 - 34.1 G/DL 08/28/2024 11:37 AM [facility] RDW 12.3(L) 12.4 - 15.1 % 08/28/2024 11:37 AM [facility] PLT 295 151 - 353 x10'3/uL 08/28/2024 11:37 AM [facility] MPV 8.6(L) 9.6 - 12.0 FL 08/28/2024 11:37 AM [facility] RBC MORPHOLOGY NORMAL 08/28/2024 11:37 AM [facility] PLT MORPH. NORMAL 08/28/2024 11:37 AM [facility] WBC MORPHOLOGY NORMAL 08/28/2024 11:37 AM [facility] LYMPHOCYTES % 22.4 15.8 - 45.0 % 08/28/2024 11:37 AM [facility] NEUTROPHILS % 71.3 42.1 - 71.9 % 08/28/2024 11:37 AM [facility] MONOCYTES % 4.2(L) 5.7 - 12.5 % 08/28/2024 11:37 AM [facility] EOSINOPHILS 0.8 0.0 - 5.6 % 08/28/2024 11:37 AM [facility] BASOPHILS 1.0 0.0 - 1.3 % 08/28/2024 11:37 AM [facility] ABS. NEUTROPHILS 5.22 1.40 - 6.00 x10'3/uL 08/28/2024 11:37 AM [facility] IMMATURE GRANS % 0.3 0.0 - 0.5 % 08/28/2024 11:37 AM [facility] ABS. LYMPHOCYTES 1.64 0.80 - 4.70 x10'3/uL 08/28/2024 11:37 AM HEM INSPECTOR [facility] 08/28/2024 11:2 7 AM HEM INSPECTOR us Flores Zamorano MD LABORATORY Final Result Performing Organization Address City/[facility]/ZIP Co de Phone Number [facility] [address] [place] [address], [place] [phone] * TROPONIN, QUANT (08/28/2024 11:27 AM HEM INSPECTOR) TROPONIN I HIGH SENSITIVITY <4 0 - 50 ng/L 08/28/2024 11:57 AM HEM INSPECTOR [facility] Comment: HIGH DOSES OF BIOTIN, TROPONIN-SPECIFIC AUTOANTIBODIES, AND ANTIBODY THERAPY CONTAINING HAMA MAY INTERFERE WITH THIS TEST RESULT. CORRELATION TO CLINICAL HISTORY AND PRESENTATION RECOMMENDED. 08/28/2024 11:2 7 AM HEM INSPECTOR us Flores Zamorano MD LABORATORY Final Result Performing Organization Address [facility]/ZIP Co de Phone Number [facility] [address] [place] [address], [place] [phone] * LIPASE (08/28/2024 11:27 AM HEM INSPECTOR) LIPASE 39 16 - 77 UNITS/L 08/28/2024 11:53 AM HEM INSPECTOR [facility] 08/28/2024 11:2 7 AM HEM INSPECTOR us Flores Zamorano MD LABORATORY Final Result Performing Organization Address City/[facility]/ZIP Co de Phone Number [facility] [address] [place] [address], [place] [phone] * CK (CPK) (08/28/2024 11:27 AM HEM INSPECTOR) CPK 60 26 - 192 U/L 08/28/2024 11:53 AM HEM INSPECTOR [facility] 08/28/2024 11:2 7 AM HEM INSPECTOR Flores Zamorano MD LABORATORY Final Result [facility] [address] [place] [address], from Last 3 Months Insurance [facility] Care Teams Farm Crew Leader Relationship Specialty Start Date End Date Evelin Cartwright MD [address] [facility] [place] [address] [place] [address] [place] [phone] PCP - General FAMILY PRACTICE 08/28/24
--- OUTSIDE RECORDS SUMMARY | 2024-10-08 20:54 | XMS_ITS | Encounter Summary ---
Author Organization [facility] Address [address] [place] [address] Care Team Providers Care Health Unit Supervisor Name Role Phone Evelin Cartwright MD Primary Care Provider [phone] Encounter Details Date Type Department Care Team (Late st Contact Info) Description 10/06/2024 External Device Data [facility] ABSTRACTION Provider, Abstract NO ADDRESS ON FILE Social History Tobacco Use Types Packs/Day Years Used Date Smoking Tobacco: Every Day Cigarettes 0.3 5 Smokeless Tobacco: Never Alcohol Use Standard Drinks/Week Comments Yes 0 (1 standard drink = 0.6 oz pur e alcohol) SOCIAL Feeling Safe Answer Date Recorded Are you in a relationship wi th someone who hurts you emotionally and/or physically? 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
--- OUTSIDE RECORDS SUMMARY | 2024-10-08 20:54 | XMS_ITS | Clinical Summary ---
Author Organization [facility] Address [address] [place] [address] Phone Care Team Providers Care Lump Receiver Name Role Phone Evelin Cartwright MD Primary Care Provider [phone] Allergies No known active allergies Medications fluticasone propion-salmete roL (ADVAIR DISKUS,WIXELA INHUB) 500-50 mcg/dose disk inhaler Take 1 Puff by inhalation 2 times daily. Active metoprolol succinate (TOPROL XL) 25 mg Extended Release 24 hour tablet Take 0.5 Tablets (12.5 mg) by mouth daily at bedtime. 15 Tablet 09/25/2022 4:42 PM CPS TEAM LEAD Active Additional Information Patient taking differently: 25 mgOralTWO TIMES DAILY, Reported on 11/12/2022 Active Problems Problem Noted Date Diagnosed Date Atrial fibrillation 09/24/2022 New onset atrial fibrillation 09/24/2022 Dizzy 09/24/2022 Near syncope 09/24/2022 Encounters Date Type Department Care Team Description 10/08/2024 External Device Data [facility] ABSTRACTION Provider, Abstract 10/06/2024 External Device Data [facility]STRACTION Provider, Abstract 07/15/2024 External Device Data [facility]STRACTION Provider, Abstract from Last 3 Months Social History Tobacco Use Types Packs/Day Years Used Date Smoking Tobacco: Every Day Cigarettes 0.3 5 Smokeless Tobacco: Never Tobacco Cessation:Ready to Q [...] on file Legal Sex Female 3:00 AM CPS TEAM LEAD Gender Identity Not on file Sexual Orientation Not on file Last Filed Vital Signs Vital Sign Reading Time Taken Comments Blood Pressure 110/72 11/12/2023 8:45 AM CPS TEAM LEAD Pulse 90 11/12/2023 8:45 AM CPS TEAM LEAD Temperature 36.9 ??C (98.4 ??F) 02/27/2023 9:32 AM CD T Respiratory Rate 16 02/27/2023 2:45 PM CDT Oxygen Saturation 98% 11/12/2023 8:45 AM CPS TEAM LEAD Inhaled Oxygen Concentration - - Weight 80.3 kg (177 lb) 11/12/2023 8:45 AM CPS TEAM LEAD Height 167.6 cm (5' 6 ) 11/12/2023 8:45 AM CPS TEAM LEAD Body Mass Index 28.57 11/12/2023 8:45 AM CPS TEAM LEAD Plan of Treatment Health Maintenance Due Date Last Done Comments HEPATITIS B VACCINES (1 of 3 - 19+ 3-dose series) 2009 PNEUMOCOCCAL VACCINE 0-64 YE ARS (1 of 2 - PCV) 2009 CERVICAL CANCER SCREENING 02/01/2020 INFLUENZA VACCINE (#1) 2024 DTAP/TDAP/TD VACCINES (2 - T d or Tdap) 01/29/2027 01/29/2017 HPV VACCINES Aged Out No longer eligi ble based on patient's age to complete this topic Medical Devices Implanted Type Area Car [employer] Device Identifier Shelf Expiration Date Model / Serial / Lot Dev Vns Vasc Clsr Vascade Mvp St [id number] - [id number] Implanted:Qty : 1 on 02/27/2023 at [facility] Closure Device Left: Groin [employer] 11/26/2024 800-612C- 10U / / [id number] 21A Dev Vns Vasc Clsr Vascade Mvp St [id number] - [id number] Implanted:Qty : 1 on 02/27/2023 at [facility] Closure Device Left: Groin [employer] 11/26/2024 800-612C- 10U / / [id number] 21A Dev Vns Vasc Clsr Vascade Mvp St [id number] - [id number] Implanted:Qty : 1 on 02/27/2023 at [facility] Closure Device Right: Groin [employer] 11/26/2024 800-612C- 10U / / [id number] 21A Dev Vns Vasc Clsr Vascade Mvp St [id number] - [id number] Implanted:Qty : 1 on 02/27/2023 at [facility] Closure Device Right: Groin [employer] 11/26/2024 800-612C- 10U / / [id number] 21A Dev Vasc Closure Vascade 5fr [id number] - [id number] Implanted:Qty : 1 on 02/27/2023 at [facility] Closure Device Right: Groin [employer] 10/08/2024 [id number] -[id number] / / [id number] [facility] [id number] [facility] [employer] Commercial Advance Directives For more information, please contact: [phone] * Full Code (Latest Code Status on File) Date Activated Date Inactivated Comments 02/27/2023 1:08 PM 02/27/2023 6:32 PM * Full Code Date Activated Date Inactivated Comments 02/27/2023 8:58 AM 02/27/2023 1:08 PM * Full Code Date Activated Date Inactivated Comments 09/24/2022 7:31 PM 09/25/2022 9:40 PM Care Teams Lump Receiver Relationship Specialty Start Date End Date Evelin Cartwright MD PCP - General Family Practice 09/24/22
--- OUTSIDE RECORDS SUMMARY | 2024-10-08 20:54 | XMS_ITS | Encounter Summary ---
Author Organization [employer] [facility] Address 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
== END 2024-10-07 16:00 | disposition home or self-care (01) ==
PROVIDERS: PCP Family Medicine; Visit Provider Obstetrics & Gynecology
PROC: (CPT 49320; principal; 2024-10-07 13:00)
DX: N70.11 Chronic salpingitis (principal); N83.8 Other noninflammatory disorders of ovary, fallopian tube and broad ligament; N83.202 Unspecified ovarian cyst, left side; N83.201 Unspecified ovarian cyst, right side; G89.18 Other acute postprocedural pain; I48.91 Unspecified atrial fibrillation; F17.210 Nicotine dependence, cigarettes, uncomplicated; Z98.890 Other specified postprocedural states; Z86.79 Personal history of other diseases of the circulatory system; Z82.49 Family history of ischemic heart disease and other diseases of the circulatory system
CPT/HCPCS: 58661; 36415; 86850; 86900; 86901; 88302; A9270; J1100; J1885; J2003; J2250; J2405; J2704; J3010; J7030; J7120; Q9968